=== PATIENT | female | born 1970 | race Caucasian/White ===

== ENCOUNTER 2017-10-03 16:32 | Inpatient (IN) | payer OTHER ==
[~2017-10-03] VITALS: Ht 162.6 cm; Wt 100.0 kg
--- NOTE | ~2017-10-03 | OP ---
PATIENT NAME: ZOYA CHANG MEDICAL RECORD: [id number] LOCATION:[id number] ADMISSION DATE:10/03/17 SURGEON: DAVID KAUR MD DATE OF OPERATION: 10/07/2017 SURGEON: David Kaur MD PREOPERATIVE DIAGNOSIS: Cellulitis with abscess of the right upper extremity. POSTOPERATIVE DIAGNOSIS: Cellulitis with abscess of the right upper extremity. PROCEDURE PERFORMED: Incision and drainage of right axillary abscess. ANESTHESIA: General. COMPLICATIONS: None. SPECIMENS: Anaerobic and aerobic cultures. Case was grossly contaminated. ESTIMATED BLOOD LOSS: 50 mL. OPERATIVE COURSE: After consent was obtained, the patient was taken to the operating room and placed in supine position on the operating table. Next, general anesthesia was given via endotracheal intubation after a timeout was taken to confirm the correct patient and procedure. The right arm was prepped and draped in typical sterile fashion. An elliptical skin incision was made with a 10 blade scalpel, approximately 4 cm x 2 cm over the apex of the abscess. Approximately 40 mL of purulent material were evacuated. Cultures were obtained. The abscess was multiloculated. All loculations were taken down with finger dissection. Total size of the abscess cavity was 8 cm x 4 cm x 4 cm. The abscess cavity was copiously irrigated and suctioned. It was packed with 1-inch iodoform gauze. At the end of the case, all needles and instruments counts were correct. No complications occurred. The patient was extubated and transferred to PACU in stable condition. TRANSINT:[id number] Voice Confirmation ID: [id number] DOCUMENT ID: [id number] DAVID KAUR MD at 1410 CC: [id number] DICTATION DATE: 10/07/17 0859 SENIOR UNDERWRITING ASSISTANT: 10/07/17 1024 ADM IN [place] [id number] [place] [address]
[2017-10-03] MEDS ORDERED: EFFEXOR XR150 MG PO (17:50)
[2017-10-03] MEDS ORDERED: NEXIUM40 MG PO (17:50)
[2017-10-03] MEDS ORDERED: GLUCOPHAGE500 MG PO (17:50)
[2017-10-03] MEDS ORDERED: TRAZODONE HCL150 MG PO (17:51)
[2017-10-03] MEDS ORDERED: SINGULAIR10 MG PO (17:51)
[2017-10-03] MEDS ORDERED: ALLEGRA-D1 TAB.SR1 PO (17:51)
[2017-10-03] MEDS ORDERED: POTASSIUM CHLO20 MEQ PO (17:52)
[2017-10-03] MEDS ORDERED: LASIX40 MG PO (17:52)
[2017-10-03 19:11] VITALS: BP 145/91; BMI 37.8
[2017-10-03 19:28] LABS: ALBUMIN 2.8 g/dL (3.4-5.0); ANION GAP 16.7 mmol/L (8-16); BILIRUBIN - TOTAL 0.23 mg/dL (0.2-1.3); CALCIUM 8.2 mg/dL (8.5-10.1); CARBON DIOXIDE 22.8 mmol/L (21.0-32.0); MAGNESIUM - SERUM 1.8 mg/dL (1.8-2.4); POTASSIUM - SERUM 3.5 mmol/L (3.5-5.1); PROTEIN - SERUM 6.8 g/dL (6.4-8.2)
[2017-10-03 20:00] VITALS: BP 139/69
[2017-10-04 04:00] VITALS: BP 164/64
[2017-10-04 06:03] LABS: BASOPHILS 0.2 % (0-2); EOSINOPHILS 2.3 % (0-7); HEMATOCRIT 36.9 % (36.0-48.0); HEMOGLOBIN 11.7 g/dL (12-16); IMMATURE GRANULOCYTES 0.4 % (0-5); LYMPHOCYTES 14.1 % (15-50); MCH 25.1 pg (26.0-34.0); MCHC 31.7 g/dL (31.0-37.0); MCV 79.2 fL (80.0-100.0); MEAN PLATELET VOLUME 10.8 fL (7.4-10.4); MONOCYTES 5.8 % (2-11); NEUTROPHILS 77.2 % (40-80); PLATELET COUNT 296 10x3/uL (130-400); RBC 4.66 10x6/uL (4.00-5.40); RDW 15.3 % (11.5-14.5)
[2017-10-04 06:22] LABS: ANION GAP 12.2 mmol/L (8-16); CALCIUM 7.8 mg/dL (8.5-10.1); CARBON DIOXIDE 25.9 mmol/L (21.0-32.0); CREATININE - SERUM 0.9 mg/dL (0.6-1.3); MAGNESIUM - SERUM 1.8 mg/dL (1.8-2.4); POTASSIUM - SERUM 3.1 mmol/L (3.5-5.1)
[2017-10-04 08:29] VITALS: BP 113/51
[2017-10-04 12:16] VITALS: Ht 162.6 cm; Wt 100.0 kg
[2017-10-04 12:48] VITALS: BP 110/61
[2017-10-04 15:15] VITALS: BP 142/76
[2017-10-04 20:00] VITALS: BP 125/66
[2017-10-04 23:38] VITALS: BP 128/67
[2017-10-05 04:00] VITALS: BP 123/65
[2017-10-05 09:09] VITALS: BP 123/63
[2017-10-05 10:12] LABS: BASOPHILS 0.5 % (0-2); EOSINOPHILS 3.7 % (0-7); HEMATOCRIT 34.1 % (36.0-48.0); HEMOGLOBIN 10.7 g/dL (12-16); IMMATURE GRANULOCYTES 0.3 % (0-5); LYMPHOCYTES 15.9 % (15-50); MCH 25.1 pg (26.0-34.0); MCHC 31.4 g/dL (31.0-37.0); MONOCYTES 4.5 % (2-11); NEUTROPHILS 75.1 % (40-80); PLATELET COUNT 272 10x3/uL (130-400); RBC 4.26 10x6/uL (4.00-5.40); RDW 15.5 % (11.5-14.5); WBC 14.8 10x3/uL (4.8-10.8)
[2017-10-05 10:50] LABS: ANION GAP 14.1 mmol/L (8-16); CARBON DIOXIDE 21.7 mmol/L (21.0-32.0); CREATININE - SERUM 0.9 mg/dL (0.6-1.3)
[2017-10-05 10:53] LABS: POTASSIUM - SERUM 3.8 mmol/L (3.5-5.1)
[2017-10-05 12:38] VITALS: BP 106/64
[2017-10-05 17:07] VITALS: BP 116/65
[2017-10-05 20:00] VITALS: BP 137/73
[2017-10-06] VITALS: BP 124/65
[2017-10-06 04:45] VITALS: BP 150/95
[2017-10-06 06:15] LABS: BASOPHILS 0.3 % (0-2); HEMATOCRIT 35.7 % (36.0-48.0); HEMOGLOBIN 11.1 g/dL (12-16); IMMATURE GRANULOCYTES 0.5 % (0-5); LYMPHOCYTES 20.8 % (15-50); MCH 24.9 pg (26.0-34.0); MCHC 31.1 g/dL (31.0-37.0); MEAN PLATELET VOLUME 10.8 fL (7.4-10.4); NEUTROPHILS 69.4 % (40-80); RBC 4.46 10x6/uL (4.00-5.40); RDW 15.5 % (11.5-14.5); WBC 15.3 10x3/uL (4.8-10.8)
[2017-10-06 06:26] LABS: PLATELET COUNT 337 10x3/uL (130-400)
[2017-10-06 06:28] LABS: CALC OSMOLALITY 280 mosm/kg (275-300); CALCIUM 8.5 mg/dL (8.5-10.1); CARBON DIOXIDE 25.7 mmol/L (21.0-32.0); CHLORIDE - SERUM 105 mmol/L (98-107); CREATININE - SERUM 0.7 mg/dL (0.6-1.3); POTASSIUM - SERUM 4.1 mmol/L (3.5-5.1); SODIUM 140 mmol/L (136-145); UREA NITROGEN 10 mg/dL (7-18); eGFR NON AFRICAN AMERICAN > 90 mL/min (90-120)
[2017-10-06 06:29] LABS: GLUCOSE 150 mg/dL (74-106)
[2017-10-06 08:33] VITALS: BP 116/65
[2017-10-06 13:18] VITALS: BP 122/73
[2017-10-06 16:11] VITALS: BP 114/57
[2017-10-06 20:00] VITALS: BP 113/63
[2017-10-07] VITALS (13 sets, daily range): BP systolic 96–141; BP diastolic 49–86
[2017-10-07 05:07] LABS: BASOPHILS 0.5 % (0-2); EOSINOPHILS 5.4 % (0-7); HEMATOCRIT 33.5 % (36.0-48.0); HEMOGLOBIN 10.4 g/dL (12-16); IMMATURE GRANULOCYTES 0.4 % (0-5); LYMPHOCYTES 22.9 % (15-50); MCH 24.8 pg (26.0-34.0); MEAN PLATELET VOLUME 10.3 fL (7.4-10.4); MONOCYTES 6.6 % (2-11); NEUTROPHILS 64.2 % (40-80); PLATELET COUNT 328 10x3/uL (130-400); RBC 4.19 10x6/uL (4.00-5.40); RDW 15.5 % (11.5-14.5)
[2017-10-07 05:11] LABS: WBC 11.3 10x3/uL (4.8-10.8)
[2017-10-07 05:18] LABS: CALC OSMOLALITY 276 mosm/kg (275-300); CALCIUM 8.3 mg/dL (8.5-10.1); CHLORIDE - SERUM 105 mmol/L (98-107); CREATININE - SERUM 0.8 mg/dL (0.6-1.3); GLUCOSE 122 mg/dL (74-106); POTASSIUM - SERUM 4.3 mmol/L (3.5-5.1); SODIUM 139 mmol/L (136-145); UREA NITROGEN 8 mg/dL (7-18); eGFR NON AFRICAN AMERICAN 82 mL/min (90-120)
[2017-10-07 07:46] LABS: HCG SERUM NEGATIVE (NEGATIVE)
[2017-10-08 00:26] VITALS: BP 124/64
[2017-10-08 04:32] VITALS: BP 104/71
[2017-10-08 06:01] LABS: BASOPHILS 0.5 % (0-2); EOSINOPHILS 4.4 % (0-7); HEMOGLOBIN 10.2 g/dL (12-16); IMMATURE GRANULOCYTES 0.4 % (0-5); MCH 24.8 pg (26.0-34.0); MCHC 30.9 g/dL (31.0-37.0); MCV 80.1 fL (80.0-100.0); MEAN PLATELET VOLUME 10.7 fL (7.4-10.4); MONOCYTES 6.5 % (2-11); NEUTROPHILS 77.2 % (40-80); PLATELET COUNT 337 10x3/uL (130-400); RBC 4.12 10x6/uL (4.00-5.40); RDW 15.5 % (11.5-14.5); WBC 10.4 10x3/uL (4.8-10.8)
[2017-10-08 06:13] LABS: CALC OSMOLALITY 274 mosm/kg (275-300); CALCIUM 8.4 mg/dL (8.5-10.1); CARBON DIOXIDE 28.8 mmol/L (21.0-32.0); CHLORIDE - SERUM 103 mmol/L (98-107); CREATININE - SERUM 0.8 mg/dL (0.6-1.3); GLUCOSE 154 mg/dL (74-106); POTASSIUM - SERUM 4.2 mmol/L (3.5-5.1); SODIUM 137 mmol/L (136-145); UREA NITROGEN 8 mg/dL (7-18); eGFR NON AFRICAN AMERICAN 82 mL/min (90-120)
[2017-10-08 07:48] VITALS: BP 117/60
[2017-10-08 12:39] VITALS: BP 113/65
[2017-10-08 16:17] VITALS: BP 110/61
[2017-10-08 23:04] VITALS: BP 126/73
[2017-10-09 04:33] VITALS: BP 134/74
[2017-10-09 07:31] LABS: BASOPHILS 0.7 % (0-2); EOSINOPHILS 1.9 % (0-7); HEMATOCRIT 32.2 % (36.0-48.0); IMMATURE GRANULOCYTES 0.4 % (0-5); LYMPHOCYTES 20.2 % (15-50); MCHC 31.1 g/dL (31.0-37.0); MCV 80.5 fL (80.0-100.0); MONOCYTES 7.7 % (2-11); NEUTROPHILS 69.1 % (40-80); PLATELET COUNT 337 10x3/uL (130-400); RDW 15.4 % (11.5-14.5)
[2017-10-09 07:32] LABS: WBC 6.8 10x3/uL (4.8-10.8)
[2017-10-09 07:44] LABS: CALC OSMOLALITY 277 mosm/kg (275-300); CALCIUM 8.4 mg/dL (8.5-10.1); CARBON DIOXIDE 30.4 mmol/L (21.0-32.0); CHLORIDE - SERUM 103 mmol/L (98-107); CREATININE - SERUM 0.8 mg/dL (0.6-1.3); GLUCOSE 144 mg/dL (74-106); POTASSIUM - SERUM 3.8 mmol/L (3.5-5.1); SODIUM 138 mmol/L (136-145); UREA NITROGEN 9 mg/dL (7-18); eGFR NON AFRICAN AMERICAN 82 mL/min (90-120)
[2017-10-09 08:42] VITALS: BP 119/74
[2017-10-09 12:45] VITALS: BP 125/68
[2017-10-09 16:35] VITALS: BP 111/68
[2017-10-09 21:12] VITALS: BP 107/63
[2017-10-10 01:39] VITALS: BP 112/64
[2017-10-10 04:14] VITALS: BP 128/65
[2017-10-10 06:21] LABS: BASOPHILS 0.7 % (0-2); EOSINOPHILS 6.9 % (0-7); HEMATOCRIT 32.1 % (36.0-48.0); HEMOGLOBIN 9.7 g/dL (12-16); IMMATURE GRANULOCYTES 0.7 % (0-5); LYMPHOCYTES 34.3 % (15-50); MCH 24.4 pg (26.0-34.0); MCHC 30.2 g/dL (31.0-37.0); MCV 80.9 fL (80.0-100.0); MEAN PLATELET VOLUME 9.9 fL (7.4-10.4); NEUTROPHILS 45.4 % (40-80); PLATELET COUNT 348 10x3/uL (130-400); RBC 3.97 10x6/uL (4.00-5.40); RDW 15.5 % (11.5-14.5); WBC 5.7 10x3/uL (4.8-10.8)
[2017-10-10 06:28] LABS: CALC OSMOLALITY 278 mosm/kg (275-300); CALCIUM 8.4 mg/dL (8.5-10.1); CARBON DIOXIDE 30.3 mmol/L (21.0-32.0); CHLORIDE - SERUM 103 mmol/L (98-107); CREATININE - SERUM 0.8 mg/dL (0.6-1.3); GLUCOSE 135 mg/dL (74-106); SODIUM 139 mmol/L (136-145); UREA NITROGEN 11 mg/dL (7-18); eGFR NON AFRICAN AMERICAN 82 mL/min (90-120)
[2017-10-10 09:52] VITALS: BP 124/77
[2017-10-10] MEDS ORDERED: HYDROCODON-ACE1 EAC7 PO (15:56)
[2017-10-10] MEDS ORDERED: MONODOX100 MG PO ×2 (15:56→15:58)
== END 2017-10-10 16:28 | disposition home or self-care (01) | DRG 603 ==
LOC: D.M2 16:32 → D.MS 16:32
PROVIDERS: Anesthesiology; Student in an Organized Health Care Education/Training Program; Surgery
PROC: 0X950ZZ Drainage of Left Axilla, Open Approach (ICD-10-PCS; principal; 2017-10-07 08:00)
DX: L03.113 Cellulitis of right upper limb (principal); K21.9 Gastro-esophageal reflux disease without esophagitis; F32.9 Major depressive disorder, single episode, unspecified; F41.9 Anxiety disorder, unspecified; B37.2 Candidiasis of skin and nail; L02.411 Cutaneous abscess of right axilla; B95.8 Unspecified staphylococcus as the cause of diseases classified elsewhere; J45.909 Unspecified asthma, uncomplicated; E11.9 Type 2 diabetes mellitus without complications

== ENCOUNTER → 2017-10-20 15:10 | Outpatient (CLI) | payer OTHER ==
[2017-10-03 19:11] VITALS: BMI 37.8
[~2017-10-20 15:10] MED LIST: ALLEGRA-D1 TAB.SR1 PO; EFFEXOR XR150 MG PO; GLUCOPHAGE500 MG PO; HYDROCODON-ACE1 EAC7 PO; LASIX40 MG PO; MONODOX100 MG PO; NEXIUM40 MG PO; POTASSIUM CHLO20 MEQ PO; SINGULAIR10 MG PO; TRAZODONE HCL150 MG PO
== END | disposition home or self-care (01) ==
LOC: D.LABREF 15:10
DX: L02.419 Cutaneous abscess of limb, unspecified (principal)